=== PATIENT | male | born 1960 | race Asian ===

== ENCOUNTER 2021-05-07 03:38 | Inpatient (IN) | payer MEDICAID ==
[~2021-05-07] VITALS: Ht 165.1 cm; Wt 54.2 kg
[~2021-05-07 03:38] MED LIST: AMLO-257 PO; AMOX1TAB16 PO; ASPI-1198 PO; ATOR20TA86 PO; GLYB2.5T6 PO; METO25XL PO
[2021-05-07] MEDS ORDERED: ASPIRIN 81 MG CHEWABLE TABLET PO ONE (04:00)
[2021-05-07] MEDS ORDERED: NITROGLYCERIN 2% (1 GM=INCH) PACKET TP ONE (04:15)
[2021-05-07 04:17] LABS: BASOPHILS % (AUTO) 0.9 % (0.0-2.0); EOSINOPHILS % (AUTO) 1.3 % (1.0-6.0); HEMATOCRIT 42.2 % (41-53); HEMOGLOBIN 13.8 g/dL (13.5-17.5); LYMPHOCYTES % (AUTO) 12.5 % (22.0-44.0); MEAN CORPUSCULAR HEMOGLOBIN 29.2 pg (26.0-34.0); MEAN CORPUSCULAR HGB CONC 32.7 G/dL (31.0-37.0); MEAN CORPUSCULAR VOLUME 90 fL (80-100); MONOCYTES # (AUTO) 0.6 K/uL (0.1-1.0); MONOCYTES % (AUTO) 8.1 % (2.0-9.0); NEUTROPHILS # (AUTO) 6.2 K/uL (1.8-7.7); NEUTROPHILS % (AUTO) 77.2 % (40.0-70.0); PLATELET COUNT (AUTO) 251 K/uL (150-450); RED BLOOD CELL COUNT(AUTO) 4.71 MIL/uL (4.50-5.90); RED CELL DISTRIBUTION WIDTH 14.9 % (11.5-14.5)
[2021-05-07 04:25] LABS: ANION GAP 8 mmol/L (8-16); CALCIUM, TOTAL 9.1 mg/dL (8.8-10.5); CARBON DIOXIDE 28 mmol/L (22-29); CHLORIDE 103 mmol/L (98-107); CREATININE 1.04 mg/dL (0.60-1.30); GLOMERULAR FILTR. RATE CALC > 60 mL/min (>60); GLUCOSE,RANDOM 223 mg/dL (70-110); POTASSIUM 4.2 mmol/L (3.5-5.1); SODIUM SERUM 139 mmol/L (136-145); UREA NITROGEN, BLOOD 26 mg/dL (7-18)
[2021-05-07 04:30] LABS: ALANINE AMINOTRANSFERASE 50 U/L (12-78); ALBUMIN 3.8 g/dL (3.4-5.0); ASPARTATE AMINOTRANSFERASE 26 U/L (15-37); BILIRUBIN,TOTAL 0.5 mg/dL (0.1-1.0); LIPASE 107 U/L (73-393); TOTAL PROTEIN, SERUM 8.4 g/dL (6.4-8.2)
[2021-05-07 04:32] LABS: COVID AG,FIA SOURCE NASOPHARYNGEAL
[2021-05-07 04:46] LABS: ALKALINE PHOSPHATASE 153 U/L (46-116)
[2021-05-07] MEDS ORDERED: ONDANSETRON HCL 4 MG/2 ML VIAL IVP PRN (05:00)
[2021-05-07] MEDS ORDERED: FUROSEMIDE 40 MG/4 ML VIAL IVP ONE (05:00)
[2021-05-07] MEDS ORDERED: DEXTROSE 50%-WATER 25 GM/50 ML SYRINGE IVP PRN (05:15)
[2021-05-07] MEDS ORDERED: SODIUM CHLORIDE 0.9% 100 ML ONE (05:45)
[2021-05-07] MEDS ORDERED: IOHEXOL 350 MG/ML 100 ML VIAL ONE (05:45)
[2021-05-07] MEDS: ASPIRIN 81 MG CHEWABLE TABLET PO SCH (08:38)
[2021-05-07] MEDS: HEPARIN SODIUM,PORCINE 5,000 UNITS/ML VIAL SQ SCH ×3 (08:38→23:42)
[2021-05-07] MEDS: AmLODIPine BESYLATE 5 MG TABLET PO SCH (08:38)
[2021-05-07] MEDS: METOPROLOL SUCCINATE 25 MG ER TABLET PO SCH (10:17)
[2021-05-07] MEDS: INSULIN LISPRO 100 UNITS/ML SQ PRN (17:20)
[2021-05-07 17:30] VITALS: BP 139/73
[2021-05-07 18:02] LABS: GLUCOMETER DEV NAME(LOC) 5S.2B; GLUCOSE,POINT OF CARE 334 MG/DL (70-110)
[2021-05-07] MEDS ORDERED: PNEUMOCOCCAL VACCINE POLYVALENT 0.5 ML VIAL [PPSV23] IM. ONE (19:00)
[2021-05-07] MEDS: INSULIN GLARGINE,HUM.REC.ANLOG 100 UNITS/ML SQ SCH (20:23)
[2021-05-07] MEDS: ATORVASTATIN CALCIUM 20 MG TABLET PO SCH (20:23)
[2021-05-07 20:33] VITALS: BP 143/76
[2021-05-08] MEDS: FUROSEMIDE 20 MG/2 ML VIAL IVP SCH ×3 (00:21→20:56)
[2021-05-08 00:33] LABS: GLUCOMETER DEV NAME(LOC) 5S.2B; GLUCOSE,POINT OF CARE 169 MG/DL (70-110)
[2021-05-08 05:28] VITALS: BP 122/79
[2021-05-08] MEDS: INSULIN LISPRO 100 UNITS/ML SQ PRN ×3 (05:53→20:54)
[2021-05-08 06:20] LABS: GLUCOMETER DEV NAME(LOC) 5N.3; GLUCOSE,POINT OF CARE 166 MG/DL (70-110)
[2021-05-08 07:18] LABS: ANION GAP 7 mmol/L (8-16); CARBON DIOXIDE 30 mmol/L (22-29); CHLORIDE 101 mmol/L (98-107); CREATININE 1.04 mg/dL (0.60-1.30); GLUCOSE,RANDOM 145 mg/dL (70-110); POTASSIUM 3.7 mmol/L (3.5-5.1); SODIUM SERUM 138 mmol/L (136-145); UREA NITROGEN, BLOOD 25 mg/dL (7-18)
[2021-05-08 07:19] LABS: ALANINE AMINOTRANSFERASE 41 U/L (12-78); ALBUMIN 4.1 g/dL (3.4-5.0); ALKALINE PHOSPHATASE 142 U/L (46-116); ASPARTATE AMINOTRANSFERASE 20 U/L (15-37); BILIRUBIN,TOTAL 0.8 mg/dL (0.1-1.0); CALCIUM, TOTAL 9.5 mg/dL (8.8-10.5); GLOMERULAR FILTR. RATE CALC > 60 mL/min (>60); TOTAL PROTEIN, SERUM 9.1 g/dL (6.4-8.2)
[2021-05-08 07:40] LABS: EOSINOPHILS % (AUTO) 1.2 % (1.0-6.0); HEMATOCRIT 46.3 % (41-53); HEMOGLOBIN 15.2 g/dL (13.5-17.5); LYMPHOCYTES # (AUTO) 1.5 K/uL (1.0-4.8); LYMPHOCYTES % (AUTO) 15.6 % (22.0-44.0); MEAN CORPUSCULAR HEMOGLOBIN 29.6 pg (26.0-34.0); MEAN CORPUSCULAR HGB CONC 32.9 G/dL (31.0-37.0); MEAN CORPUSCULAR VOLUME 90 fL (80-100); MONOCYTES # (AUTO) 0.8 K/uL (0.1-1.0); NEUTROPHILS % (AUTO) 74.2 % (40.0-70.0); PLATELET COUNT (AUTO) 284 K/uL (150-450); RED BLOOD CELL COUNT(AUTO) 5.16 MIL/uL (4.50-5.90); RED CELL DISTRIBUTION WIDTH 15.1 % (11.5-14.5)
[2021-05-08 07:49] VITALS: BP 139/72
[2021-05-08] MEDS: AmLODIPine BESYLATE 5 MG TABLET PO SCH (08:35)
[2021-05-08] MEDS: ASPIRIN 81 MG CHEWABLE TABLET PO SCH (08:35)
[2021-05-08] MEDS: HEPARIN SODIUM,PORCINE 5,000 UNITS/ML VIAL SQ SCH ×3 (08:35→23:22)
[2021-05-08] MEDS: METOPROLOL SUCCINATE 25 MG ER TABLET PO SCH (08:35)
[2021-05-08 11:19] VITALS: BP 120/70
[2021-05-08 11:41] LABS: GLUCOMETER DEV NAME(LOC) 5S.2B; GLUCOSE,POINT OF CARE 361 MG/DL (70-110)
[2021-05-08 15:49] VITALS: BP 137/77
[2021-05-08 18:11] LABS: GLUCOMETER DEV NAME(LOC) 5N.3; GLUCOSE,POINT OF CARE 110 MG/DL (70-110)
[2021-05-08 20:00] VITALS: BP 134/77
[2021-05-08] MEDS: INSULIN GLARGINE,HUM.REC.ANLOG 100 UNITS/ML SQ SCH (20:55)
[2021-05-08] MEDS: MELATONIN 3 MG TABLET PO PRN (20:56)
[2021-05-08] MEDS: ATORVASTATIN CALCIUM 20 MG TABLET PO SCH (20:56)
[2021-05-09 00:11] VITALS: BP 134/79
[2021-05-09 04:52] VITALS: BP 144/85
[2021-05-09 07:25] VITALS: BP 141/84
[2021-05-09 08:02] LABS: BASOPHILS % (AUTO) 0.8 % (0.0-2.0); EOSINOPHILS % (AUTO) 0.8 % (1.0-6.0); HEMATOCRIT 45.1 % (41-53); HEMOGLOBIN 14.8 g/dL (13.5-17.5); LYMPHOCYTES # (AUTO) 1.9 K/uL (1.0-4.8); MEAN CORPUSCULAR HEMOGLOBIN 29.5 pg (26.0-34.0); MEAN CORPUSCULAR HGB CONC 32.8 G/dL (31.0-37.0); MEAN CORPUSCULAR VOLUME 90 fL (80-100); MONOCYTES # (AUTO) 0.8 K/uL (0.1-1.0); MONOCYTES % (AUTO) 8.4 % (2.0-9.0); NEUTROPHILS # (AUTO) 6.7 K/uL (1.8-7.7); PLATELET COUNT (AUTO) 273 K/uL (150-450); RED BLOOD CELL COUNT(AUTO) 5.01 MIL/uL (4.50-5.90); RED CELL DISTRIBUTION WIDTH 15.2 % (11.5-14.5)
[2021-05-09 08:15] LABS: ANION GAP 10 mmol/L (8-16); CALCIUM, TOTAL 9.2 mg/dL (8.8-10.5); CARBON DIOXIDE 28 mmol/L (22-29); CHLORIDE 101 mmol/L (98-107); CREATININE 0.99 mg/dL (0.60-1.30); GLOMERULAR FILTR. RATE CALC > 60 mL/min (>60); GLUCOSE,RANDOM 117 mg/dL (70-110); POTASSIUM 3.4 mmol/L (3.5-5.1); SODIUM SERUM 139 mmol/L (136-145); UREA NITROGEN, BLOOD 29 mg/dL (7-18)
[2021-05-09] MEDS: ASPIRIN 81 MG CHEWABLE TABLET PO SCH (08:17)
[2021-05-09] MEDS: METOPROLOL SUCCINATE 25 MG ER TABLET PO SCH (08:17)
[2021-05-09] MEDS: FUROSEMIDE 20 MG/2 ML VIAL IVP SCH ×2 (08:17→21:05)
[2021-05-09] MEDS: HEPARIN SODIUM,PORCINE 5,000 UNITS/ML VIAL SQ SCH ×2 (08:17→15:25)
[2021-05-09] MEDS: AmLODIPine BESYLATE 5 MG TABLET PO SCH (08:17)
[2021-05-09 11:10] VITALS: BP 119/71
[2021-05-09] MEDS: INSULIN LISPRO 100 UNITS/ML SQ PRN ×2 (11:39→17:37)
[2021-05-09 14:29] VITALS: BP 128/75
[2021-05-09] MEDS: IPRATROPIUM BROMIDE 0.5 MG/2.5 ML NEB SOLUTION NEB SCH ×3 (15:16→23:00)
[2021-05-09] MEDS: ALBUTEROL SULFATE 2.5 MG/0.5 ML NEB SOLUTION NEB SCH ×3 (15:16→23:00)
[2021-05-09 17:32] LABS: GLUCOMETER DEV NAME(LOC) 5N.3; GLUCOSE,POINT OF CARE 280 MG/DL (70-110)
[2021-05-09 17:32] LABS: GLUCOMETER DEV NAME(LOC) 5N.3; GLUCOSE,POINT OF CARE 114 MG/DL (70-110)
[2021-05-09 19:47] LABS: GLUCOMETER DEV NAME(LOC) 5S.2B; GLUCOSE,POINT OF CARE 333 MG/DL (70-110)
[2021-05-09 19:47] LABS: GLUCOMETER DEV NAME(LOC) 5S.2B; GLUCOSE,POINT OF CARE 162 MG/DL (70-110)
[2021-05-09 19:49] VITALS: BP 124/68
[2021-05-09] MEDS: INSULIN GLARGINE,HUM.REC.ANLOG 100 UNITS/ML SQ SCH ×2 (21:00→21:05)
[2021-05-09] MEDS: ATORVASTATIN CALCIUM 20 MG TABLET PO SCH (21:04)
[2021-05-09] MEDS: MELATONIN 3 MG TABLET PO PRN (21:04)
[2021-05-09 22:19] LABS: GLUCOMETER DEV NAME(LOC) 5N.3; GLUCOSE,POINT OF CARE 252 MG/DL (70-110)
[2021-05-10] VITALS (11 sets, daily range): BP systolic 112–149; BP diastolic 68–91
[2021-05-10] MEDS: IPRATROPIUM BROMIDE 0.5 MG/2.5 ML NEB SOLUTION NEB SCH ×6 (03:00→23:00)
[2021-05-10] MEDS: ALBUTEROL SULFATE 2.5 MG/0.5 ML NEB SOLUTION NEB SCH ×6 (03:00→23:00)
[2021-05-10 06:57] LABS: GLUCOMETER DEV NAME(LOC) 5N.3; GLUCOSE,POINT OF CARE 183 MG/DL (70-110)
[2021-05-10] MEDS: HEPARIN SODIUM,PORCINE 5,000 UNITS/ML VIAL SQ SCH ×5 (08:50→23:05)
[2021-05-10] MEDS: FUROSEMIDE 20 MG/2 ML VIAL IVP SCH ×2 (08:50→20:02)
[2021-05-10 09:42] LABS: ANION GAP 10 mmol/L (8-16); CALCIUM, TOTAL 8.8 mg/dL (8.8-10.5); CARBON DIOXIDE 30 mmol/L (22-29); CHLORIDE 99 mmol/L (98-107); CREATININE 1.15 mg/dL (0.60-1.30); GLOMERULAR FILTR. RATE CALC > 60 mL/min (>60); GLUCOSE,RANDOM 176 mg/dL (70-110); POTASSIUM 4.1 mmol/L (3.5-5.1); SODIUM SERUM 139 mmol/L (136-145); UREA NITROGEN, BLOOD 35 mg/dL (7-18)
[2021-05-10] MEDS ORDERED: LIDOCAINE/PF 1% 30 ML VIAL ONE ×2 (12:01→13:52)
[2021-05-10] MEDS ORDERED: IOHEXOL 300 MG/ML 50 ML VIAL ONE (12:01)
[2021-05-10] MEDS ORDERED: SODIUM BICARBONATE 50 MEQ/50 ML VIAL ONE (12:01)
[2021-05-10] MEDS ORDERED: BUPIVACAINE LIPOSOME/PF 1.3%-13.3MG/ML SUSPENSION 10 ML VIAL INJ ONE (13:45)
[2021-05-10] MEDS ORDERED: LIDOCAINE 1% 30 ML/SOD BICARB 8.4% 4 ML SQ ONE (13:45)
[2021-05-10] MEDS ORDERED: IOHEXOL 300 MG/ML 50 ML VIAL IVP ONE (15:15)
[2021-05-10] MEDS: AmLODIPine BESYLATE 5 MG TABLET PO SCH (16:29)
[2021-05-10] MEDS: METOPROLOL SUCCINATE 25 MG ER TABLET PO SCH (16:29)
[2021-05-10] MEDS: ASPIRIN 81 MG CHEWABLE TABLET PO SCH (16:29)
[2021-05-10 16:42] LABS: GLUCOMETER DEV NAME(LOC) 5N.1C; GLUCOSE,POINT OF CARE 179 MG/DL (70-110)
[2021-05-10] MEDS: INSULIN LISPRO 100 UNITS/ML SQ PRN ×2 (16:43→21:09)
[2021-05-10] MEDS: CeFAZolin 1 GM/DEXTROSE 50 ML IV SCH (20:02)
[2021-05-10] MEDS: ATORVASTATIN CALCIUM 20 MG TABLET PO SCH (20:02)
[2021-05-10] MEDS: ACETAMINOPHEN 325 MG TABLET PO PRN (20:23)
[2021-05-10] MEDS: INSULIN GLARGINE,HUM.REC.ANLOG 100 UNITS/ML SQ SCH (21:08)
[2021-05-10 21:37] LABS: GLUCOMETER DEV NAME(LOC) 5N.1C; GLUCOSE,POINT OF CARE 262 MG/DL (70-110)
[2021-05-10 21:37] LABS: GLUCOMETER DEV NAME(LOC) 5N.1C; GLUCOSE,POINT OF CARE 220 MG/DL (70-110)
[2021-05-11 00:12] VITALS: BP 125/64
[2021-05-11] MEDS: CeFAZolin 1 GM/DEXTROSE 50 ML IV SCH ×2 (01:41→08:03)
[2021-05-11] MEDS: MELATONIN 3 MG TABLET PO PRN (01:52)
[2021-05-11] MEDS: ACETAMINOPHEN 325 MG TABLET PO PRN (01:52)
[2021-05-11] MEDS: ALBUTEROL SULFATE 2.5 MG/0.5 ML NEB SOLUTION NEB SCH ×3 (03:00→11:00)
[2021-05-11] MEDS: IPRATROPIUM BROMIDE 0.5 MG/2.5 ML NEB SOLUTION NEB SCH ×3 (03:00→11:00)
[2021-05-11 03:30] VITALS: BP 129/75
[2021-05-11] MEDS ORDERED: LIDOCAINE/PF 2% 5 ML VIAL IM ONE (05:16)
[2021-05-11] MEDS ORDERED: FentaNYL CITRATE PF 100 MCG/2 ML VIAL IVP ONE (05:16)
[2021-05-11] MEDS ORDERED: MIDAZOLAM HCL 2 MG/2 ML VIAL IVP ONE (05:16)
[2021-05-11] MEDS ORDERED: PROPOFOL 1% ISO-OSM 1000 MG/100 ML BOTTLE IV ONE (05:16)
[2021-05-11] MEDS ORDERED: HYDROCODONE/ACETAMINOPHEN 5-325 MG TABLET PO PRN (05:30)
[2021-05-11 06:41] LABS: GLUCOMETER DEV NAME(LOC) 5N.1C; GLUCOSE,POINT OF CARE 231 MG/DL (70-110)
[2021-05-11 07:43] VITALS: BP 129/79
[2021-05-11] MEDS: FUROSEMIDE 20 MG/2 ML VIAL IVP SCH (08:01)
[2021-05-11] MEDS: ASPIRIN 81 MG CHEWABLE TABLET PO SCH (08:01)
[2021-05-11] MEDS: METOPROLOL SUCCINATE 25 MG ER TABLET PO SCH (08:02)
[2021-05-11] MEDS: HEPARIN SODIUM,PORCINE 5,000 UNITS/ML VIAL SQ SCH (08:02)
[2021-05-11] MEDS: AmLODIPine BESYLATE 5 MG TABLET PO SCH (08:02)
[2021-05-11] MEDS ORDERED: ASPI-1450 PO (11:31)
[2021-05-11] MEDS ORDERED: ATOR20TA86 PO (11:32)
[2021-05-11] MEDS ORDERED: AMLO-257 PO (11:32)
[2021-05-11] MEDS ORDERED: FURO20 PO (11:33)
[2021-05-11] MEDS ORDERED: METO25XL PO (11:34)
[2021-05-11 11:59] VITALS: BP 130/80
== END 2021-05-11 12:30 | disposition home or self-care (01) | DRG 179 ==
LOC: EMS 03:38 → 5N 15:35 → 5S 17:02
PROVIDERS: ADMIT Internal Medicine; ATTEND Internal Medicine
PROC: 0JH608Z Insertion of Defibrillator Generator into Chest Subcutaneous Tissue and Fascia, Open Approach (ICD-10-PCS; principal; 2021-05-10)
PROC: 02H63KZ Insertion of Defibrillator Lead into Right Atrium, Percutaneous Approach (ICD-10-PCS; 2021-05-10)
PROC: 02HK3KZ Insertion of Defibrillator Lead into Right Ventricle, Percutaneous Approach (ICD-10-PCS; 2021-05-10)
DX: I11.0 Hypertensive heart disease with heart failure (principal); J96.01 Acute respiratory failure with hypoxia; E44.0 Moderate protein-calorie malnutrition; I16.0 Hypertensive urgency; I25.119 Atherosclerotic heart disease of native coronary artery with unspecified angina pectoris; I50.23 Acute on chronic systolic (congestive) heart failure; E11.65 Type 2 diabetes mellitus with hyperglycemia; E78.5 Hyperlipidemia, unspecified; J44.9 Chronic obstructive pulmonary disease, unspecified; I25.5 Ischemic cardiomyopathy; Z20.822 Contact with and (suspected) exposure to COVID-19; Z79.84 Long term (current) use of oral hypoglycemic drugs; Z79.899 Other long term (current) drug therapy; Z95.1 Presence of aortocoronary bypass graft; I25.2 Old myocardial infarction; Z68.1 Body mass index [BMI] 19.9 or less, adult; Z79.82 Long term (current) use of aspirin
CPT/HCPCS: 33249; 36005; 71045; 71046; 71275; 76000; 80048; 80053; 82962; 83036; 83690; 83880; 84484; 85025; 85379; 93005; 93306; 94640; 99285; G0378; J0690; J1644; J1815; J1940; J2250; J2704; J3010; J3490; J7050; Q9967; 36415-L1; 36415-TC; J7613; U0003

== ENCOUNTER 2021-10-03 22:51 | Inpatient (IN) | payer MEDICAID ==
[~2021-10-03] VITALS: Ht 165.1 cm; Wt 54.6 kg
[~2021-10-03 22:51] MED LIST changes: -AMOX1TAB16 PO; -GLYB2.5T6 PO
[2021-10-03 23:19] LABS: BASOPHILS % (AUTO) 1.2 % (0.0-2.0); EOSINOPHILS % (AUTO) 0.9 % (1.0-6.0); HEMATOCRIT 41.1 % (41-53); HEMOGLOBIN 13.6 g/dL (13.5-17.5); LYMPHOCYTES # (AUTO) 1.2 K/uL (1.0-4.8); LYMPHOCYTES % (AUTO) 18.9 % (22.0-44.0); MEAN CORPUSCULAR HEMOGLOBIN 29.7 pg (26.0-34.0); MEAN CORPUSCULAR VOLUME 90 fL (80-100); MONOCYTES # (AUTO) 0.7 K/uL (0.1-1.0); MONOCYTES % (AUTO) 10.3 % (2.0-9.0); NEUTROPHILS # (AUTO) 4.5 K/uL (1.8-7.7); NEUTROPHILS % (AUTO) 68.7 % (40.0-70.0); PLATELET COUNT (AUTO) 302 K/uL (150-450); RED BLOOD CELL COUNT(AUTO) 4.58 MIL/uL (4.50-5.90); RED CELL DISTRIBUTION WIDTH 14.1 % (11.5-14.5)
[2021-10-03 23:38] LABS: CALCIUM, TOTAL 9.1 mg/dL (8.8-10.5); CREATININE 1.46 mg/dL (0.60-1.30); POTASSIUM 4.6 mmol/L (3.5-5.1)
[2021-10-03 23:44] LABS: ALBUMIN 3.8 g/dL (3.4-5.0); BILIRUBIN,TOTAL 0.5 mg/dL (0.1-1.0); TOTAL PROTEIN, SERUM 8.1 g/dL (6.4-8.2)
[2021-10-04] VITALS (7 sets, daily range): BP systolic 111–145; BP diastolic 69–94
[2021-10-04] MEDS ORDERED: FUROSEMIDE 20 MG/2 ML VIAL IVP ONE (00:15)
[2021-10-04 01:51] LABS: COVID AG,FIA SOURCE NASOPHARYNGEAL
[2021-10-04] MEDS ORDERED: DEXTROSE 50%-WATER 25 GM/50 ML SYRINGE IVP PRN (07:45)
[2021-10-04] MEDS ORDERED: ACETAMINOPHEN 325 MG TABLET PO PRN (07:45)
[2021-10-04] MEDS: ASPIRIN 81 MG CHEWABLE TABLET PO SCH (08:57)
[2021-10-04] MEDS: LOSARTAN POTASSIUM 25 MG TABLET PO SCH (08:57)
[2021-10-04] MEDS: CARVEDILOL 6.25 MG TABLET PO SCH ×2 (08:57→20:05)
[2021-10-04] MEDS: DOCUSATE SODIUM 100 MG CAPSULE PO SCH ×2 (08:57→20:05)
[2021-10-04] MEDS: HEPARIN SODIUM,PORCINE 5,000 UNITS/ML VIAL SQ SCH ×2 (08:58→20:06)
[2021-10-04] MEDS: FAMOTIDINE 20 MG TABLET PO SCH (08:58)
[2021-10-04] MEDS: FUROSEMIDE 20 MG TABLET PO SCH (08:58)
[2021-10-04] MEDS: INSULIN LISPRO 100 UNITS/ML SQ PRN (12:31)
[2021-10-04 14:06] LABS: GLUCOMETER DEV NAME(LOC) 5S.2B; GLUCOSE,POINT OF CARE 324 MG/DL (70-110)
[2021-10-04 17:26] LABS: GLUCOMETER DEV NAME(LOC) 5N.1C; GLUCOSE,POINT OF CARE 89 MG/DL (70-110)
[2021-10-04] MEDS ORDERED: ATORVASTATIN CALCIUM 20 MG TABLET PO SCH (21:00)
[2021-10-05 00:10] VITALS: BP 124/64
[2021-10-05 01:11] LABS: GLUCOMETER DEV NAME(LOC) 5N.3; GLUCOSE,POINT OF CARE 177 MG/DL (70-110)
[2021-10-05 04:25] VITALS: BP 121/61
[2021-10-05] MEDS: INSULIN LISPRO 100 UNITS/ML SQ PRN ×2 (05:48→12:33)
[2021-10-05 07:51] LABS: CALCIUM, TOTAL 9.3 mg/dL (8.8-10.5); CREATININE 1.3 mg/dL (0.60-1.30); POTASSIUM 4.1 mmol/L (3.5-5.1)
[2021-10-05 08:24] VITALS: BP 116/73
[2021-10-05] MEDS: DOCUSATE SODIUM 100 MG CAPSULE PO SCH (08:28)
[2021-10-05] MEDS: FAMOTIDINE 20 MG TABLET PO SCH (08:28)
[2021-10-05] MEDS: HEPARIN SODIUM,PORCINE 5,000 UNITS/ML VIAL SQ SCH (08:28)
[2021-10-05] MEDS: ASPIRIN 81 MG CHEWABLE TABLET PO SCH (08:29)
[2021-10-05] MEDS: FUROSEMIDE 20 MG TABLET PO SCH (08:29)
[2021-10-05] MEDS: CARVEDILOL 6.25 MG TABLET PO SCH (08:29)
[2021-10-05] MEDS: LOSARTAN POTASSIUM 25 MG TABLET PO SCH (08:31)
[2021-10-05 08:46] LABS: GLUCOMETER DEV NAME(LOC) 5N.1C; GLUCOSE,POINT OF CARE 234 MG/DL (70-110)
[2021-10-05 12:25] VITALS: BP 105/71
[2021-10-05 12:51] LABS: GLUCOMETER DEV NAME(LOC) 5N.1C; GLUCOSE,POINT OF CARE 217 MG/DL (70-110)
[2021-10-05] MEDS ORDERED: FURO20 PO (13:58)
[2021-10-05] MEDS ORDERED: LOSA-381 PO (13:59)
[2021-10-05] MEDS ORDERED: CARV6 PO (14:00)
[2021-10-05 14:28] VITALS: BP 105/71
== END 2021-10-05 15:50 | disposition home or self-care (01) | DRG 194 ==
LOC: EDUNIT# 22:51 → EMS 22:52 → 5S 10-04 05:30
PROVIDERS: ADMIT Internal Medicine; ATTEND Internal Medicine
DX: I50.43 Acute on chronic combined systolic (congestive) and diastolic (congestive) heart failure (principal); N17.9 Acute kidney failure, unspecified; I25.810 Atherosclerosis of coronary artery bypass graft(s) without angina pectoris; Z20.822 Contact with and (suspected) exposure to COVID-19; E11.9 Type 2 diabetes mellitus without complications; E78.00 Pure hypercholesterolemia, unspecified; Z95.1 Presence of aortocoronary bypass graft; Z95.810 Presence of automatic (implantable) cardiac defibrillator
CPT/HCPCS: 71045; 80048; 80053; 82962; 83880; 84484; 85025; 93005; 93306; 99285; J1644; J1940; 36415-L1; 36415-TC

== ENCOUNTER 2021-11-20 11:14 | Emergency (ER) | payer MEDICAID ==
[~2021-11-20] VITALS: Ht 167.6 cm; Wt 60.0 kg
[~2021-11-20 11:14] MED LIST changes: -AMLO-257 PO; +CARV6 PO; +FURO20 PO; +LOSA-381 PO; -METO25XL PO
[2021-11-20 11:28] VITALS: BP 136/74
[2021-11-20 12:08] LABS: BASOPHILS % (AUTO) 0.9 % (0.0-2.0); EOSINOPHILS % (AUTO) 1.8 % (1.0-6.0); HEMATOCRIT 39.4 % (41-53); LYMPHOCYTES # (AUTO) 1.4 K/uL (1.0-4.8); LYMPHOCYTES % (AUTO) 21.8 % (22.0-44.0); MEAN CORPUSCULAR HEMOGLOBIN 29.5 pg (26.0-34.0); MEAN CORPUSCULAR HGB CONC 33.1 G/dL (31.0-37.0); MEAN CORPUSCULAR VOLUME 89 fL (80-100); MONOCYTES # (AUTO) 0.7 K/uL (0.1-1.0); MONOCYTES % (AUTO) 10.8 % (2.0-9.0); NEUTROPHILS # (AUTO) 4.3 K/uL (1.8-7.7); NEUTROPHILS % (AUTO) 64.7 % (40.0-70.0); PLATELET COUNT (AUTO) 228 K/uL (150-450); RED BLOOD CELL COUNT(AUTO) 4.43 MIL/uL (4.50-5.90); RED CELL DISTRIBUTION WIDTH 14.5 % (11.5-14.5)
[2021-11-20 12:23] LABS: ANION GAP 3 mmol/L (8-16); CALCIUM, TOTAL 9.3 mg/dL (8.8-10.5); CARBON DIOXIDE 32 mmol/L (22-29); CHLORIDE 104 mmol/L (98-107); CREATININE 1.02 mg/dL (0.60-1.30); GLOMERULAR FILTR. RATE CALC > 60 mL/min (>60); GLUCOSE,RANDOM 77 mg/dL (70-110); POTASSIUM 4.1 mmol/L (3.5-5.1); SODIUM SERUM 139 mmol/L (136-145); UREA NITROGEN, BLOOD 22 mg/dL (7-18)
[2021-11-20 12:33] LABS: B-TYPE NATRIURETIC PEPTIDE 426 pg/mL (0-100)
== END 2021-11-20 13:02 | disposition home or self-care (01) ==
LOC: EMS 11:17
DX: I50.9 Heart failure, unspecified (principal); E11.9 Type 2 diabetes mellitus without complications; E78.00 Pure hypercholesterolemia, unspecified; I25.10 Atherosclerotic heart disease of native coronary artery without angina pectoris; Z79.899 Other long term (current) drug therapy
CPT/HCPCS: 71045; 80048; 83880; 84484; 85025; 93005; 99285; 36415-L1; 36415-TC